=== PATIENT | female | born 1995 | race Caucasian/White ===

== ENCOUNTER → 2017-07-23 | Outpatient (CLI) | payer OTHER ==
[~2017-07-23] VITALS: Ht 154.9 cm; Wt 61.2 kg
[~2017-07-23] MED LIST: BUSP15TA PO; CETI10TA22 PO; DEXM15CP PO; FLUO20CA16 PO; SINCALIDE 1.22 MCG in IV NORMAL SALINE 50ML 30 ML IV ONE
--- NOTE | 2017-07-23 10:14 | RAD ---
Radionuclide hepatobiliary scan with gallbladder ejection fraction, 07/23/2017: History: Right upper quadrant pain Following IV injection of 5.3 mCi of technetium 99m Choletec there was prompt uptake of the radionuclide from the blood stream by the liver. Bile duct and gallbladder activity is present at 15 minutes. Small bowel activity develops at 35 minutes. Additional imaging of the gallbladder was then performed following IV injection of 1.2 mcg of cholecystokinin. The gallbladder ejection fraction was calculated at 75%. The patient did report transient pain during the initial stages of the cholecystokinin injection. IMPRESSION: 1. Normal radionuclide hepatobiliary scan. 2. Normal gallbladder ejection fraction of 75%.
== END | disposition home or self-care (01) ==
LOC: NM 07:48
PROVIDERS: ATTEND Family Medicine Sports Medicine
DX: R10.11 Right upper quadrant pain (principal); Z91.018 Allergy to other foods
CPT/HCPCS: 78226; 96374; 96375; A9537; J2805

== ENCOUNTER 2021-05-07 15:04 | Emergency (ER) | payer OTHER ==
[~2021-05-07] VITALS: Ht 157.5 cm; Wt 53.6 kg
[~2021-05-07 15:04] MED LIST changes: -CETI10TA22 PO; +CETI10TA74 PO; -SINCALIDE 1.22 MCG in IV NORMAL SALINE 50ML 30 ML IV ONE
[2021-05-07] MEDS ORDERED: AMOX1TAB61 PO (16:16)
--- NOTE | 2021-05-07 16:17 | PHYS DOC ---
Past History Past Medical History: Anxiety (TRINITY MCKEON APRN) Past Surgical History: No Surgical History (TRINITY MCKEON APRN) Smoking: Non-smoker Alcohol Use: None Drug Use: None (TRINITY MCKEON APRN) General Adult EDM: Chief Complaint: ANIMAL BITE HPI: HPI: Patient is a 25-year-old female who presents with cat bite to her right forearm. Patient was bit by a cat she was fostering. Cat is up-to-date on vaccinations. Patient is unsure of last tetanus shot. Denies medical history. Denies pain. (TRINITY MCKEON APRN) Review of Systems: Review of Systems: ROS At least 10 ROS systems have been reviewed and are negative except as documented in the HPI. General: Negative except as outlined in HPI above. Skin: Negative except as outlined in HPI above. HEENT: Negative except as outlined in HPI above. Neck: Negative except as outlined in HPI above. Respiratory: Negative except as outlined in HPI above.. Cardiovascular: Negative except as outlined in HPI above. Abdomen: Negative except as outlined in HPI above. : Negative except as outlined in HPI above. Back/MSK: Negative except as outlined in HPI above. Neuro: Negative except as outlined in HPI above. Psych: Negative except as outlined in HPI above. (TRINITY MCKEON APRN) Allergies: Allergies: Allergies Coded Allergies Type Severity Reaction Last Updated Verified tree nut Allergy Unknown 07/23/17 Yes (TRINITY MCKEON APRN) Physical Exam: PE: Constitutional: Well developed, well nourished, no acute distress, non-toxic appearance. [] HENT: Normocephalic, atraumatic, bilateral external ears normal, oropharynx moist, no oral exudates, nose normal. [] Eyes: PERRLA, EOMI, conjunctiva normal, no discharge. [] Neck: Normal range of motion, no tenderness, supple, no stridor. [] Cardiovascular:Heart rate regular rhythm, no murmur [] Lungs & Thorax: Bilateral breath sounds clear to auscultation [] Abdomen: Bowel sounds normal, soft, no tenderness, no masses, no pulsatile masses. [] Skin: Cat bite to right forearm, tender Back: No tenderness, no CVA tenderness. [] Extremities: No tenderness, no cyanosis, no clubbing, ROM intact, no edema. [] Neurologic: Alert and oriented X 3, normal motor function, normal sensory fun ction, no focal deficits noted. [] Psychologic: Affect normal, judgement normal, mood normal. [] (TRINITY MCKEON APRN) EKG: EKG: [] (TRINITY MCKEON APRN) Radiology/Procedures: Radiology/Procedures: [] (TRINITY MCKEON APRN) Heart Score: C/O Chest Pain: No Risk Factors: Risk Factors: DM, Current or recent (<one month) smoker, HTN, HLP, family history of CAD, obesity. Risk Scores: Score 0 - 3: 2.5% MACE over next 6 weeks - Discharge Home Score 4 - 6: 20.3% MACE over next 6 weeks - Admit for Clinical Observation Score 7 - 10: 72.7% MACE over next 6 weeks - Early Invasive Strategies (TRINITY MCKEON APRN) Course & Med Decision Making: Course & Med Decision Making Pertinent Labs and Imaging studies reviewed. (See chart for details) [] 25-year-old female presents with a cat bite to her right forearm. Patient unsure of last tetanus shot. Patient tetanus updated. Sent prescription for antibiotic to her pharmacy. Discussed return precautions and signs and symptoms to watch for. Patient reports understands discharge instructions. Patient is hemodynamically stable. (TRINITY MCKEON APRN) Course & Med Decision Making I was the ER physician during date of ER visit. SALESPERSON FURS independently saw and treated patient. Although I was in the department seeing other patients, no assistance was requested. Electronically signed, Nellie Cortes DO (NELLIE CORTES DO) Nolberto Disclaimer: Nolberto Disclaimer: This electronic medical record was generated, in whole or in part, using a voice recognition dictation system. (TRINITY MCKEON APRN) Departure Departure: Impression: Primary Impression: Animal bite of right forearm Qualified Codes: S51.851A - Open bite of right forearm, initial encounter Disposition: 01 HOME / SELF CARE / HOMELESS Condition: STABLE Referrals: KRISTEN DAVIS MD (PCP) Patient Instructions: Animal Bite, [id number] Additional Instructions: You were seen in the emergency room for an animal bite. Your tetanus was updated. I am also sending you home with a prescription for an antibiotic to help prevent infection. Please watch for signs and symptoms of infection such as fever, increase in pain, drainage from the wound. Return to the emergency room with worsening symptoms or concerns EMERGENCY DEPARTMENT GENERAL DISCHARGE INSTRUCTIONS Thank you for coming to [facility] (ED) today and trusting us with you care. We trust that you had a positivie experience in our Emergency Department. If you wish to speak to the department management, you may call the director at [phone]. YOUR FOLLOW UP INSTRUCTIONS ARE FOLLOWS: 1. Do you have a private Doctor? If you do not have a private doctor, please ask for a resource list of physicians or clinics that may be able to assist you with follow up care. 2. The Emergency Physician has interpreted your x-rays. The X-Ray specialist will also review them. If there is a change in the findings, you will be notified in 48 hours when at all possible. 3. A lab test or culture has been done, your results will be reviewed and you will be notified if you need a change in treatment. ADDITIONAL INSTRUCTIONS AND INFORMATION: 1. Your care today has been supervised by a physician who is specially trained in emergency care. Many problems require more than one evaluation for a complete diagnosis and treatment. We recommend that you schedule your follow up appointment as recommended to ensure complete treatment of you illness or injury. If you are unable to obtain follow up care and continue to have a problem, or if your condition worsens, we recommend that you return to the ED. 2. We are not able to safely determine your condition over the phone nor are we able to give sound medical advice over the phone. For these safety reasons, if you call for medical advice we will ask you to come to the ED for further evaluation. 3. If you have any questions regarding these discharge instructions please call the ED at [phone]. SAFETY INFORMATION: In the interest of safety, wellness, and injury prevention; we encourage you to wear your sealbelt, if you smoke; quite smoking, and we encourage family to use a protective helmet for bicycling and other sporting events that present an increased risk for head injury. IF YOUR SYMPTOMS WORSEN OR NEW SYMPTOMS DEVELOP, OR YOU HAVE CONCERNS ABOUT YOUR CONDITION; OR IF YOUR CONDITION WORSENS WHILE YOU ARE WAITING FOR YOUR FOLLOW UP APPOINTMENT; EITHER CONTACT YOUR PRIMARY CARE DOCTOR, THE PHYSICIAN WHOSE NAME AND NUMBER YOU WERE GIVEN, OR RETURN TO THE ED IMMEDIATELY. Scripts Amoxicillin/Potassium Clav (AUGMENTIN 875-125 TABLET) 1 Each Tablet 1 TAB PO BID for cat bite for 5 Days, #10 TAB 0 Refills Prov: TRINITY MCKEON APRN 05/07/21 TRINITY MCKEON APRN May 07, 2021 16:16 NELLIE CORTES DO May 09, 2021 11:11
[2021-05-07] MEDS ORDERED: DIPH,PERTUSS(ACELL),TET VAC/PF 0.5 ML SYRINGE. VAX IM ONE ×2 (16:21→16:30)
== END 2021-05-07 16:25 | disposition home or self-care (01) ==
LOC: ER 15:04
DX: S51.851A Open bite of right forearm, initial encounter (principal); F41.9 Anxiety disorder, unspecified; W55.01XA Bitten by cat, initial encounter; Y93.89 Activity, other specified; Y92.89 Other specified places as the place of occurrence of the external cause; Y99.8 Other external cause status
CPT/HCPCS: 99283